=== PATIENT | male | born 1945 | race Caucasian/White ===

== ENCOUNTER 2023-07-03 07:06 | Inpatient (IN) | payer MEDICARE, BC ==
[2023-06-25 17:20] LABS: BASOPHILS # (AUTO) 0.1 X10'3 (0-0.2); BASOPHILS % (AUTO) 0.6 % (0-1); EOSINOPHILS # (AUTO) 0.2 X10'3 (0-0.9); EOSINOPHILS % (AUTO) 1.4 % (0-6); LYMPHOCYTES # (AUTO) 2.8 X10'3 (1.1-4.8); LYMPHOCYTES % (AUTO) 19.7 % (21-51); MEAN CORPUSCULAR HEMOGLOBIN 30.3 PG (27.0-31.0); MEAN CORPUSCULAR HGB CONC 33.3 g/dL (33.0-36.5); MEAN CORPUSCULAR VOLUME 90.8 FL (78-98); MEAN PLATELET VOLUME 8.4 FL (7.4-10.4); MONOCYTES # (AUTO) 1.4 X10'3 (0-0.9); MONOCYTES % (AUTO) 9.6 % (2-12); NEUTROPHILS # (AUTO) 9.9 X10'3 (1.8-7.7); NEUTROPHILS % (AUTO) 68.7 % (42-75); PRE OP PLATELET COUNT 229 X10'3 (140-440); PRE OP WHITE BLOOD COUNT 14.4 10'3 (4.8-10.8); RED BLOOD COUNT 4.95 X10'6 (4.70-6.10); RED CELL DISTRIBUTION WIDTH 13.4 % (11.5-14.5)
[2023-06-25 17:32] LABS: PRE OP PROTIME 10.9 SECONDS (9.0-12.0)
[2023-06-25 17:34] LABS: ALBUMIN 3.8 G/DL (3.4-5.0); ALBUMIN/GLOBULIN RATIO 1.1 (1.1-1.5); ALKALINE PHOSPHATASE 84 IU/L (46-116); BLOOD UREA NITROGEN 16 MG/DL (7-18); BUN/CREATININE RATIO 17.6 (10.0-20.0); CALCIUM 8.8 MG/DL (8.5-10.1); CHLORIDE 106 MMOL/L (99-107); CREATININE 0.91 MG/DL (0.60-1.10); PRE OP ALT 14 U/L (30-65); PRE OP ANION GAP 9 (8-16); PRE OP AST 9 U/L (10-37); PRE OP BILIRUB, TOTAL 1.2 MG/DL (0.0-1.0); PRE OP GLUCOSE 93 MG/DL (70-104); PRE OP POTASSIUM 3.6 MMOL/L (3.4-5.1); PRE OP SODIUM 141 MMOL/L (135-145); TOTAL CARBON DIOXIDE 25.6 MMOL/L (24-32); TOTAL PROTEIN 7.3 G/DL (6.4-8.2); eGFR 81 ML/MIN
[2023-06-25 17:58] LABS: BILIRUBIN,URINE NEGATIVE (Neg); CLARITY,URINE CLEAR (Clear); COLOR,URINE YELLOW (Yellow); GLUCOSE, URINE NEGATIVE (Neg); KETONES,URINE NEGATIVE (Neg); LEUKOCYTE ESTERASE ,URINE NEGATIVE (Neg); NITRITES, URINE NEGATIVE (Neg); OCCULT BLOOD,URINE NEGATIVE (Neg); PH,URINE 5.5 (4.8-8.0); PROTEIN,URINE NEGATIVE (Neg); UROBILINOGEN,URINE 0.2 E.U/dL (0.2-1.0)
[2023-06-25 18:00] LABS: UA COLLECTION TYPE CLN CATCH MIDSTREAM
[2023-07-03] VITALS (26 sets, daily range): BP systolic 126–173; BP diastolic 58–134; PULSE 45–75; RESP 12–24; TEMP 97–98.2; O2SAT 92–99
[~2023-07-03] VITALS: Ht 177.8 cm; Wt 92.5 kg
[2023-07-03] MEDS: tranexamic acid inj. 1,000 MG in normal saline IV soln 100ML IV ONE (05:30)
[2023-07-03] MEDS: cefazolin 2gm/D5W 100mL 100 ML IV ONE (05:30)
[~2023-07-03 07:06] MED LIST: ATOR40TA71 PO; BENA1TAB12 PO; FLO0.4C PO; SERT25TA PO
[2023-07-03] MEDS: ringers solution, lacted 1,000 ML IV SCH ×2 (07:51→14:29)
[2023-07-03] MEDS: famotidine 20mg tablet PO ONE (07:51)
[2023-07-03] MEDS ORDERED: proCHLORperazine 10 MG/2 ml inj IV PRN (09:25)
[2023-07-03] MEDS ORDERED: hydrALAZINE 20mg/ml inj. IV PRN (09:25)
[2023-07-03] MEDS ORDERED: morphine 2 MG/ML inj. syringe IV PRN (09:25)
[2023-07-03] MEDS ORDERED: ondansetron/PF 4mg/2ml inj IV PRN ×2 (09:25→10:05)
[2023-07-03] MEDS ORDERED: HYDROmorphone/PF 0.2 MG/ML SYRINGE IV PRN ×2 (09:25)
[2023-07-03] MEDS ORDERED: labetalol 20mg/4ml (5mg/ml) syringe IV PRN (09:25)
[2023-07-03] MEDS ORDERED: morphine 4 MG/ML inj SYRINge IV PRN (09:25)
[2023-07-03] MEDS ORDERED: magnesium hydroxide 30ml (MOM) UD suspension PO PRN (10:05)
[2023-07-03] MEDS ORDERED: naloxone 0.4 mg/ml inj IV PRN (10:05)
[2023-07-03] MEDS ORDERED: diphenhydrAMINE 25mg capsule PO PRN (10:05)
[2023-07-03] MEDS ORDERED: acetaminophen 325mg tablet PO PRN (10:05)
[2023-07-03] MEDS ORDERED: bisacodyl 10mg suppository rectal RC PRN (10:05)
[2023-07-03] MEDS ORDERED: HYDROcodone/acetaminophen 5mg/325mg tablet PO PRN (10:05)
[2023-07-03] MEDS ORDERED: fentaNYL/PF 50MCG/1 ML 2ML syringe ONE (10:15)
[2023-07-03] MEDS ORDERED: midazolam 1 mg/ML 2ml injection ONE (10:15)
[2023-07-03] MEDS ORDERED: sevoflurane 250ml liquid IH ONE (10:16)
[2023-07-03] MEDS ORDERED: LIDOcaine 1%/PF 5ML 10 MG/ML VIAL ONE (11:03)
[2023-07-03] MEDS ORDERED: rocuronium 10mg/ml inj IV ONE (11:03)
[2023-07-03] MEDS ORDERED: ROPIVAcaine 0.5% (5mg/ml) 30ml vial ONE (11:03)
[2023-07-03] MEDS ORDERED: dexamethasone sod phosphate 4mg/ml inj. ONE (11:03)
[2023-07-03] MEDS ORDERED: LIDOcaine 2% (20mg/ml) 5ml vial ONE (11:03)
[2023-07-03] MEDS ORDERED: propofol inj 20 ML IV ONE (11:03)
[2023-07-03] MEDS ORDERED: ondansetron/PF 4mg/2ml inj ONE (11:04)
[2023-07-03] MEDS: vancomycin 1,000mg inj ONE (13:43)
[2023-07-03] MEDS ORDERED: ceFAZolin 1000mg inj ONE (14:16)
[2023-07-03] MEDS ORDERED: morphine 4 MG/ML inj SYRINge ONE (14:16)
[2023-07-03] MEDS: acetaminophen 1,000mg/100ml IV 100 ML IV ONE (14:30)
[2023-07-03] MEDS: cefazolin 2gm/D5W 100mL 100 ML IV SCH (19:03)
[2023-07-03] MEDS: potassium cl 20mEq in 1/2 NS 1,000 ML IV SCH (20:35)
[2023-07-03] MEDS ORDERED: cefazolin 2gm/D5W 100mL 100 ML IV SCH (22:15)
[2023-07-04] MEDS: cefazolin 2gm/D5W 100mL 100 ML IV SCH (03:27)
[2023-07-04] MEDS: HYDROcodone/acetaminophen 5mg/325mg tablet PO PRN (05:33)
[2023-07-04 06:00] VITALS: BP 165/66; PULSE 65; RESP 16; TEMP 97.5; O2SAT 94
[2023-07-04 07:23] LABS: BASOPHILS # (AUTO) 0.1 X10'3 (0-0.2); BASOPHILS % (AUTO) 0.4 % (0-1); EOSINOPHILS % (AUTO) 0 % (0-6); HEMATOCRIT 39.4 % (42.0-52.0); HEMOGLOBIN 13.2 g/dl (14.0-17.9); LYMPHOCYTES # (AUTO) 2.3 X10'3 (1.1-4.8); LYMPHOCYTES % (AUTO) 15.1 % (21-51); MEAN CORPUSCULAR HEMOGLOBIN 30.6 PG (27.0-31.0); MEAN CORPUSCULAR HGB CONC 33.4 g/dL (33.0-36.5); MEAN CORPUSCULAR VOLUME 91.5 FL (78-98); MEAN PLATELET VOLUME 8.2 FL (7.4-10.4); MONOCYTES # (AUTO) 2.1 X10'3 (0-0.9); MONOCYTES % (AUTO) 13.5 % (2-12); NEUTROPHILS # (AUTO) 10.8 X10'3 (1.8-7.7); PLATELET COUNT 232 X10'3 (140-440); RED CELL DISTRIBUTION WIDTH 13.5 % (11.5-14.5); WHITE BLOOD COUNT 15.2 X10'3 (4.5-11.0)
[2023-07-04 08:04] LABS: ALANINE AMINOTRANSFERASE 13 U/L (12-78); ALBUMIN 3.2 G/DL (3.4-5.0); ALKALINE PHOSPHATASE 64 IU/L (46-116); ANION GAP 10 (8-16); ASPARTATE AMINO TRANSFERASE 27 U/L (10-37); BILIRUBIN,TOTAL 0.7 MG/DL (0.1-1.0); BLOOD UREA NITROGEN 18 MG/DL (7-18); CALCIUM 8.5 MG/DL (8.5-10.1); CHLORIDE 104 MMOL/L (99-107); GLUCOSE 104 MG/DL (70-104); POTASSIUM 4.2 MMOL/L (3.5-5.1); SODIUM 137 MMOL/L (135-145); TOTAL CARBON DIOXIDE 22.6 MMOL/L (24-32); TOTAL PROTEIN 6.5 G/DL (6.4-8.2); eCRCL 70 ML/MIN; eGFR 82 ML/MIN
[2023-07-04 10:00] VITALS: BP 176/68; PULSE 69; RESP 18; TEMP 97.2; O2SAT 95
[2023-07-04] MEDS: DOXYCYCLINE 100MG CAPSULE PO SCH (10:21)
[2023-07-04 11:25] VITALS: RESP 16
== END 2023-07-04 14:41 | disposition home or self-care (01) | DRG 483 ==
LOC: PAS IN 07:06 → UNDOADMIN 07:06 → PAS IN 10:16 → ORTHO 4S 17:21
PROVIDERS: ADMIT Specialist; ATTEND Specialist
PROC: 0RRJ00Z Replacement of Right Shoulder Joint with Reverse Ball and Socket Synthetic Substitute, Open Approach (ICD-10-PCS; 2023-07-03)
PROC: 0LS30ZZ Reposition Right Upper Arm Tendon, Open Approach (ICD-10-PCS; 2023-07-03)
PROC: 3E0T3BZ Introduction of Anesthetic Agent into Peripheral Nerves and Plexi, Percutaneous Approach (ICD-10-PCS; 2023-07-03)
PROC: 0RPJ0JZ Removal of Synthetic Substitute from Right Shoulder Joint, Open Approach (ICD-10-PCS; principal; 2023-07-03 10:16)
DX: T84.89XA Other specified complication of internal orthopedic prosthetic devices, implants and grafts, initial encounter (principal); M75.101 Unspecified rotator cuff tear or rupture of right shoulder, not specified as traumatic; Y83.8 Other surgical procedures as the cause of abnormal reaction of the patient, or of later complication, without mention of misadventure at the time of the procedure; E78.5 Hyperlipidemia, unspecified; I10 Essential (primary) hypertension; N40.0 Benign prostatic hyperplasia without lower urinary tract symptoms; Y92.89 Other specified places as the place of occurrence of the external cause; Z85.820 Personal history of malignant melanoma of skin; Z79.899 Other long term (current) drug therapy
CPT/HCPCS: 36415; 71046; 73030; 76000; 80053; 81003; 82948; 85025; 85610; 85730; 86885; 86900; 86901; 87070; 87075; 87081; 97110; 97161; 97530; A4565; A4615; A4618; A6449; A6455; A7000; C1713; C1776; G0378; J0690; J0735; J1100; J2250; J2270; J2405; J2704; J2710; J2795; J3010; J3370; J3480; J3490; J7120